=== PATIENT | female | born 1965 | race Two or more races ===

== ENCOUNTER 2021-03-06 09:23 | Day surgery (SDC) | payer BC ==
[~2021-03-06] VITALS: Ht 165.1 cm; Wt 63.9 kg
[~2021-03-06 09:23] MED LIST: BUPIVACAINE/PF 0.25% ONE; EPINEPHRINE 1 MG/ML, 1ML ONE; GENTAMICIN 80 MG/2 ML ONE; VANCOMYCIN 500 MG ONE
[2021-03-06 10:08] VITALS: BP 129/80
[2021-03-06] MEDS ORDERED: CHLORHEXIDINE 15 ML UDC ONE (10:23)
[2021-03-06] MEDS ORDERED: LACTATED RINGERS 1,000 ML IV SCH (10:30)
[2021-03-06] MEDS ORDERED: CHLORHEXIDINE 15 ML UDC PO ONE (11:00)
[2021-03-06] MEDS ORDERED: MIDAZOLAM 1 MG/ML, 2ML ONE (11:06)
[2021-03-06] MEDS ORDERED: FENTANYL PF 250 MCG/5ML ONE (11:07)
[2021-03-06] MEDS ORDERED: HYDROmorphone 1 MG/ML, 1ML INJ IV PRN (13:00)
[2021-03-06] MEDS ORDERED: ONDANSETRON 2MG/ML, 2ML IVPush PRN (13:00)
[2021-03-06] MEDS ORDERED: OXYcodone 5 MG/5 ML ORAL.SOL UDC PO PRN (13:00)
[2021-03-06] MEDS ORDERED: PROMETHAZINE 25 MG/ML, 1ML IV PRN (13:00)
[2021-03-06] MEDS ORDERED: hydrALAzine 20 MG/ML, 1ML IV PRN (13:00)
[2021-03-06] MEDS ORDERED: MEPERIDINE/PF 25MG/0.5ML IVPush PRN (13:00)
[2021-03-06] MEDS ORDERED: DIAZEPAM 5 MG/ML, 2ML IV PRN ×2 (13:00)
[2021-03-06] MEDS ORDERED: ALBUTEROL SULFATE 2.5 MG/3 ML NPPB PRN (13:00)
[2021-03-06] MEDS ORDERED: KETOROLAC 30 MG/1 ML IV PRN (13:00)
[2021-03-06] MEDS ORDERED: LABETALOL 5MG/ML, 20ML IV PRN (13:00)
[2021-03-06] MEDS ORDERED: METOCLOPRAMIDE 5 MG/ML, 2ML IV PRN (13:00)
[2021-03-06] MEDS ORDERED: FENTANYL PF 100 MCG/2ML IV PRN (13:00)
[2021-03-06] MEDS ORDERED: KETOROLAC 30 MG/1 ML ONE (13:56)
[2021-03-06] MEDS ORDERED: OXYcodone 5 MG/5 ML ORAL.SOL UDC ONE ×2 (15:22)
[2021-03-06] MEDS ORDERED: ACETAMINOPHEN 325 MG SUPP ONE (16:49)
[2021-03-06] MEDS ORDERED: ACETAMINOPHEN 325 MG TABLET ONE (16:50)
[2021-03-06] MEDS ORDERED: ACETAMINOPHEN 325 MG TABLET PO PRN (17:00)
== END 2021-03-06 17:35 | disposition home or self-care (01) ==
LOC: OUT 09:23
PROVIDERS: ATTEND Obstetrics & Gynecology Female Pelvic Medicine and Reconstructive Surgery
DX: N81.2 Incomplete uterovaginal prolapse (principal); N39.46 Mixed incontinence; Z98.890 Other specified postprocedural states
CPT/HCPCS: 57265; 57282; 57288; 58552; 88305; C1771; J0171; J1580; J1885; J2250; J3010; J3370; J7120